=== PATIENT | male | born 1990 | race African-American/Black ===

== ENCOUNTER 2017-10-16 08:55 | Emergency (ER) | payer SELFPAY ==
[2017-10-16] MEDS ORDERED: HYDROcodone/ACETAMIN 5-325 MG* 1 TAB PO ONE (09:32)
[2017-10-16] MEDS ORDERED: Ketorolac INJ* 60 MG/2 ML VIAL IM ONE (09:32)
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
[2017-10-16 10:33] VITALS: BP 139/62
== END 2017-10-16 10:31 | disposition home or self-care (01) ==
LOC: ED 08:55
DX: K04.7 Periapical abscess without sinus (principal); K08.89 Other specified disorders of teeth and supporting structures
CPT/HCPCS: 10061; 96372; 99282; J1885

== ENCOUNTER 2018-01-07 09:24 | Emergency (ER) | payer OTHER ==
[2018-01-07 09:53] VITALS: BP 131/70
--- NOTE | 2018-01-07 10:27 | UC ---
Respiratory Complaint HPI - HPI Summary HPI Summary: Pt presents with sinus pain/pressure/congestion, post nasal drip, and a rash to his upper lip for the last week. He has not been taking anything OTC. Denies fever, chills, sore throat, cough, SOB, chest pain, abdominal pain, n/v/d/c. - History of Current Complaint Chief Complaint: UCGeneralIllness Stated Complaint: RASH RESP ISSUE Time Seen by Provider: 01/07/18 10:26 Hx Obtained From: Patient Onset/Duration: Gradual Onset Severity Initially: Moderate Severity Currently: Moderate Pain Intensity: 7 Pain Scale Used: 0-10 Numeric - Allergies/Home Medications Allergies/Adverse Reactions: Allergies Allergy/AdvReac Type Severity Reaction Status Date / Time No Known Allergies Allergy Verified 01/07/18 09:54 PMH/Surg Hx/FS Hx/Imm Hx Previously Healthy: Yes Other History Of: Negative For: Anticoagulant Therapy - Surgical History Surgical History: None Surgery Procedure, Year, and Place: mouth abcess removed 10/13/2017 - Family History Known Family History: Positive: Unknown - Social History Occupation: Employed Full-time Lives: With Family Alcohol Use: Occasionally Substance Use Type: Marijuana Smoking Status (MU): Never Smoked Tobacco Have You Smoked in the Last Year: No Household Exposure Type: Cigarettes - Immunization History Most Recent Tetanus Shot: unknown Review of Systems Constitutional: Negative Skin: Rash - Upper lip ENT: Nasal Discharge, Sinus Congestion, Sinus Pain/Tenderness Respiratory: Negative Cardiovascular: Negative Gastrointestinal: Negative Neurological: Negative Psychological: Negative All Other Systems Reviewed And Are Negative: Yes Physical Exam - Summary Physical Exam Summary: GENERAL: NAD. WDWN HEENT: NC/AT. Conjunctiva clear without inflammation or discharge. TMs intact , no bulging, erythema, or edema. Nasal mucosa mildly swollen and erythematous with yellow/clear discharge. TTP maxillary and frontal sinus. Posterior oropharynx without exudates, erythema, or tonsillar enlargement. Uvula midline. NECK: Supple without lymphadenopathy CHEST: CTAB. No r/r/w. No accessory muscle use. Breathing comfortably and in no distress. CV: RRR. Without m/r/g. Pulses intact. SKIN: Mild crusting to upper lip that is dry and flaking. No drainage, bleeding , or edema NEURO: Alert. CN II-XII grossly intact. PSYCH: Age appropriate behavior. Triage Information Reviewed: Yes Vital Signs: Initial Vital Signs Temp 98.3 F 01/07/18 09:49 Pulse 74 01/07/18 09:49 Resp 20 01/07/18 09:49 BP 131/70 01/07/18 09:49 Pulse Ox 98 01/07/18 09:49 Diagnostic Evaluation - Laboratory O2 Sat by Pulse Oximetry: 98 Respiratory Course/Dx - Course Course Of Treatment: Sinusitis. Atopic dermatitis upper lip - Differential Dx/Diagnosis Provider Diagnoses: Sinusitis. Atopic dermatitis upper lip Discharge - Sign-Out/Discharge Documenting (check all that apply): Discharge - Discharge Plan Condition: Stable Disposition: HOME Prescriptions: Amoxicillin PO (*) [Amoxicillin 500 MG CAP*] 500 mg PO Q12H #14 cap Mupirocin 2% OINT* [Bactroban 2 % Oint*] 1 applic TOPICAL BID #1 tube Patient Education Materials: Sinusitis (ED) Forms: *Work Release Referrals: Gurpreet Mcgee MD [Primary Care Provider] - Additional Instructions: If you develop a fever, shortness of breath, chest pain, new or worsening symptoms - please call your PCP or go to the ED. - Billing Disposition and Condition Condition: STABLE Disposition: HOME
== END 2018-01-07 10:36 | disposition home or self-care (01) ==
LOC: UCEAST 09:24
DX: J34.9 Unspecified disorder of nose and nasal sinuses (principal); L20.9 Atopic dermatitis, unspecified
CPT/HCPCS: 99212; G0463

== ENCOUNTER 2019-08-27 00:41 | Emergency (ER) | payer MEDICAID, OTHER ==
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
[2019-08-27] MEDS ORDERED: Gelfoam 12-7 ADSORBABL SPONGE* 1 EA SPONGE TOPICAL ONE (01:21)
[2019-08-27] MEDS ORDERED: Tetan/Diph/Pertus SYR(Tdap)* 0.5 ML SYR(BOOSTRIX) use SYR contains LATEX IM ONE (01:22)
[2019-08-27 01:56] VITALS: BP 140/90
== END 2019-08-27 01:42 | disposition home or self-care (01) ==
LOC: ED 00:41
DX: S61.200A Unspecified open wound of right index finger without damage to nail, initial encounter (principal); Z23 Encounter for immunization; W26.8XXA Contact with other sharp object(s), not elsewhere classified, initial encounter; Y92.89 Other specified places as the place of occurrence of the external cause; Y99.0 Civilian activity done for income or pay
CPT/HCPCS: 90471; 90715; 99282; A9270-GY